=== PATIENT | female | born 1970 | race Caucasian/White ===

== ENCOUNTER 2018-07-16 14:08 | Emergency (ER) | payer SELFPAY ==
[2018-07-16 14:25] VITALS: TEMP 99
--- NOTE | 2018-07-16 14:28 | ED.PDOC ---
History of Present Illness - General Chief Complaint: Upper Extremity Injury Stated Complaint: left arm pain Time Seen by Provider: 07/16/18 14:25 - History of Present Illness Initial Comments: The patient presents to the emergency department with complaint of left upper extremity pain. The patient was walking and tripped over a brick which caused her to land onto her left elbow/forearm which has been having throbbing pain s vj. She notes aggravation with movement/palpation and denies alleviating factors. The patient states she she did not strike her head as well as denies other injuries at this time. Occurred: yesterday Pain - Upper Extremity: moderate: Upper arm, left Method of Injury: direct blow Improving Factors: nothing Worsening Factors: other - palpation/movement Allergies/Adverse Reactions: Allergies Morphine Allergy (Unverified 05/04/13 21:03) Home Medications: Ambulatory Orders Acetaminophen W/ Codeine [Tylenol W/ CODEINE #3] 1 ea PO Q6HR PRN #12 07/16/18 Lisinopril & Hydrochlorothiazi [Lisinopril/Hctz 20-12.5 mg] 1 tab PO DAILY 07/16/18 Review of Systems - Review of Systems All other Systems: Reviewed and Negative Past Medical History (General) - Patient Medical History Hx Stroke: No Hx Congestive Heart Failure: No Hx Hypertension: Yes Hx Diabetes: No Hx MRSA: Yes - Leg 2008 MRSA Source:: Wound Surgical History: no surgical history - Vaccination History Hx Influenza Vaccination: Yes - Social History Hx Tobacco Use: No - Female History Patient is a Female of Child Bearing Age (10 -59 yrs old): Yes Family Medical History - Family History Mother Family History: Unknown Living Status: Unknown Physical Exam - Physical Exam General Appearance: Alert Eyes, Ears, Nose, Throat Exam: PERRL/EOMI, normal ENT inspection Neck: non-tender, full range of motion, other - RADIAL PULSES INTACT B AND WNL Cardiovascular/Respiratory: regular rate, rhythm, no M/R/G Abdominal Exam: non-tender Back Exam: normal inspection, no CVA tenderness Shoulder Exam: normal inspection Elbow/Forearm Exam: normal ROM, pain - left elbow/distal forearm, swelling - in the region of the medial left elbow. There is ttp of the distal forearm noted w/o swelling. Wrist Exam: normal inspection - no snuffbox tenderness noted of left wrist, non- tender - bilateral wrist, no evidence of injury - bilateral wrist, normal ROM - bilateral wrist Hand Exam: normal inspection - bilaterally, non-tender - bilaterally, no evidence of injury - bilaterally, normal ROM - Bilaterally Neuro/Tendon: normal sensation, normal motor functions, normal tendon functions Mental Status: alert, oriented x 3 Skin Exam: normal color Progress - Progress Progress: 07/16/18 14:31 PATIENT PRESENTATION APPEARS TO BE CONSISTENT WITH INJURIES DUE TO TRAUMA. WILL ORDER IMAGING OF AREAS THAT WERE INJURED(LEFT HUMERUS/ELBOW/FOREARM) TO EVALUATE FOR EMERGENT PATHOLOGY IN THESE AREAS. IF NOTHING EMERGENT FOUND, DISPO WILL BE HOME. 07/16/18 15:21 The patient is doing well this time. She notes some relief of her pain status post Toradol injection. The patient was advised that she is noted to have a le ft radial head fracture. The patient was advised that she must follow up with orthopedics within the next 24-48 hours for recheck. The patient was advised to return to the ED if any concerns arise such as increased pain, swelling, numbness/tingling or any other issues arise. The patient verbalized understanding of these instructions. 07/16/18 15:38 - EKG/XRAY/CT XRAY: humerus/elbow/forearm Xray Comments: subtle L radial head fracture noted. No other fx noted. reports reviewed Departure - Departure Clinical Impression: Elbow pain, left Fall Qualifiers: Encounter type: initial encounter Qualified Code(s): W19.XXXA - Unspecified fall, initial encounter Forearm pain Qualifiers: Laterality: left Qualified Code(s): M79.632 - Pain in left forearm Radial head fracture Qualifiers: Encounter type: initial encounter Fracture type: closed Fracture alignment: nondisplaced Laterality: left Qualified Code(s): S52.125A - Nondisplaced fracture of head of left radius, initial encounter for closed fracture Disposition: Discharge to Home or Self Care Departure Forms: ED Discharge - Pt. Copy, Patient Portal Self Enrollment Instructions: DI for Arm Pain, Radius Fracture (DC) Activity: no exercise, no lifting, no pushing/pulling with affected limb - You m ay bend and move your elbow as tolerated but NO strenous activity or lifting until seen by orthopedics or your PCP. Referrals: Dominick Malik MD [Active Staff] - 1-2 Days (For further evaluation and care of your radial head fracture. ) Buck Valentino MD [Primary Care Provider] - 1-2 Days (Please see your pcp in 1-2days for recheck. Return to the ED if any concerns arise such as increased pain, swelling, numbness/tingling or any other issues arise. If you are unable to see Dr. Malik please have your PCP refer you to an orthopedic surgeon to care for your fracture. ) Prescriptions: Acetaminophen W/ Codeine [Tylenol W/ CODEINE #3] 1 ea PO Q6HR PRN #12 PRN Reason: Pain Home Medications: Ambulatory Orders Acetaminophen W/ Codeine [Tylenol W/ CODEINE #3] 1 ea PO Q6HR PRN #12 07/16/18 Lisinopril & Hydrochlorothiazi [Lisinopril/Hctz 20-12.5 mg] 1 tab PO DAILY 07/16/18
[2018-07-16] MEDS ORDERED: KETOROLAC TROMETHAMINE INJ 30 MG/ML VIAL IM ONE (14:30)
--- NOTE | 2018-07-16 15:04 | RAD ---
Two-view left humerus. Three-view left elbow. Two-view left forearm. Indication: fall Comparison: None. Impression: No acute fracture of the left humerus. Subtle nondisplaced radial neck fracture noted. Subcutaneous edema throughout the ulnar aspect of the elbow. No evidence of a dislocation event. No acute fracture of the more distal aspects of the left forearm. No radiopaque foreign body or advanced osteoarthritis. Electronically signed by: Souleymane De La Cruz MD 07/16/2018 3:03 PM [facility]
--- NOTE | 2018-07-16 15:04 | RAD ---
Two-view left humerus. Three-view left elbow. Two-view left forearm. Indication: fall Comparison: None. Impression: No acute fracture of the left humerus. Subtle nondisplaced radial neck fracture noted. Subcutaneous edema throughout the ulnar aspect of the elbow. No evidence of a dislocation event. No acute fracture of the more distal aspects of the left forearm. No radiopaque foreign body or advanced osteoarthritis. Electronically signed by: Souleymane De La Cruz MD 07/16/2018 3:03 PM [facility]
--- NOTE | 2018-07-16 15:04 | RAD ---
Two-view left humerus. Three-view left elbow. Two-view left forearm. Indication: fall Comparison: None. Impression: No acute fracture of the left humerus. Subtle nondisplaced radial neck fracture noted. Subcutaneous edema throughout the ulnar aspect of the elbow. No evidence of a dislocation event. No acute fracture of the more distal aspects of the left forearm. No radiopaque foreign body or advanced osteoarthritis. Electronically signed by: Souleymane De La Cruz MD 07/16/2018 3:03 PM [facility]
[2018-07-16 15:44] VITALS: BP 166/101; O2SAT 98
== END 2018-07-16 15:44 | disposition home or self-care (01) ==
LOC: ER 14:08 → EDSTATUS 14:09 → ER 15:44
DX: S52.125A Nondisplaced fracture of head of left radius, initial encounter for closed fracture (principal); M79.632 Pain in left forearm; I10 Essential (primary) hypertension; Y93.01 Activity, walking, marching and hiking; W01.0XXA Fall on same level from slipping, tripping and stumbling without subsequent striking against object, initial encounter; Z88.5 Allergy status to narcotic agent; Z79.899 Other long term (current) drug therapy; Y92.9 Unspecified place or not applicable
CPT/HCPCS: 73060; 73080; 73090; J1885

== ENCOUNTER → 2018-07-31 | Outpatient (CLI) | payer SELFPAY ==
--- NOTE | 2018-07-31 11:39 | RAD ---
EXAM DESCRIPTION: Elbow,Left 3 Views CLINICAL HISTORY: PAIN IN LEFT ELBOW COMPARISON: July 16, 2018 IMPRESSION: 3 views of the left elbow again demonstrate mildly impacted minimally displaced radial head fracture without obvious extension to the articular surface. Mild indistinctness of the fracture margins is seen that could indicate early healing without significant bridging callus formation at this time. No dislocation. No other fractures. Elevation of the distal anterior and posterior humerus fat pads are seen consistent with joint effusion and hemarthrosis. Small osteophyte of the coronoid process is seen. Electronically signed by: Mateus Waters MD 07/31/2018 11:38 AM [facility]
--- NOTE | 2018-07-31 11:52 | RAD ---
EXAM DESCRIPTION: Wrist,Left 3 Views CLINICAL HISTORY: PAIN IN LEFT WRIST COMPARISON: None. IMPRESSION: 3 views of the left wrist show no acute fracture, focal bone destruction, or joint dislocation. Soft tissues are unremarkable. Electronically signed by: Mateus Waters MD 07/31/2018 11:51 AM [facility]
== END ==
LOC: RAD 11:02
PROVIDERS: ATTEND Orthopaedic Surgery
DX: S52.122D Displaced fracture of head of left radius, subsequent encounter for closed fracture with routine healing (principal); M25.722 Osteophyte, left elbow; M25.522 Pain in left elbow

== ENCOUNTER → 2018-08-24 | Outpatient (CLI) | payer SELFPAY ==
--- NOTE | 2018-08-24 10:46 | RAD ---
EXAM DESCRIPTION: Elbow,Left 3 Views CLINICAL HISTORY: FRACTURE OF RADIAL NECK FINDINGS/ IMPRESSION: Impacted fracture of the neck of the radius. Compared to 07/31/2018 there is a greater degree of lysis along the fracture margins. The cortical overlap along the lateral neck of the radius is about 3 mm similar to previous study. No callus or bony bridging at the fracture Joint effusion with elevation of anterior and posterior fat pads No fracture of the humerus or ulna Electronically signed by: Jose R Pearl MD 08/24/2018 10:45 AM [facility]
--- NOTE | 2018-08-24 10:47 | RAD ---
EXAM DESCRIPTION: Left hand, 3 views CLINICAL HISTORY: PAIN IN LEFT HAND FINDINGS/ IMPRESSION: Normal mineralization. Normal alignment No focal demineralization or inflammatory erosion. No fracture or acute osteochondral lesion. No advanced arthrosis. No diagnostic soft tissue abnormality Electronically signed by: Jose R Pearl MD 08/24/2018 10:46 AM [facility]
--- NOTE | 2018-08-24 10:49 | RAD ---
EXAM DESCRIPTION: Left wrist, 3 radiographs CLINICAL HISTORY: PAIN IN LEFT WRIST FINDINGS/ IMPRESSION: Normal mineralization. Normal alignment No focal demineralization or inflammatory erosion. No fracture or acute osteochondral lesion. Normal intercarpal distances. No advanced arthrosis Electronically signed by: Jose R Pearl MD 08/24/2018 10:48 AM [facility]
== END ==
LOC: RAD 09:31
PROVIDERS: ATTEND Orthopaedic Surgery
DX: S52.102D Unspecified fracture of upper end of left radius, subsequent encounter for closed fracture with routine healing (principal); M25.422 Effusion, left elbow; M79.642 Pain in left hand; M25.532 Pain in left wrist